=== PATIENT | male | born 1960 | race Caucasian/White ===

== ENCOUNTER → 2021-05-10 | Outpatient (CLI) | payer MEDICARE | LOC: EXRD 15:02 | DX: R06.02 Shortness of breath (principal); U09.9 Post COVID-19 condition, unspecified | CPT/HCPCS: 71046 ==

== ENCOUNTER → 2021-07-29 | Outpatient (CLI) | payer MEDICARE | LOC: HEART 5 08:53 | DX: R06.00 Dyspnea, unspecified (principal); R06.02 Shortness of breath | CPT/HCPCS: 94010 ==

== ENCOUNTER → 2021-08-12 | Outpatient (CLI) | payer MEDICARE | LOC: KOH-I 11:08 | DX: R10.13 Epigastric pain (principal); R06.02 Shortness of breath; R59.0 Localized enlarged lymph nodes | CPT/HCPCS: 71250 ==

== ENCOUNTER → 2021-08-17 | Outpatient (CLI) | payer MEDICARE | LOC: HEART 5 13:24 | DX: R06.00 Dyspnea, unspecified (principal); R06.02 Shortness of breath; U09.9 Post COVID-19 condition, unspecified | CPT/HCPCS: 94010 ==

== ENCOUNTER → 2021-09-08 | Outpatient (CLI) | payer MEDICARE | LOC: CT 09-01 14:00 | DX: N28.89 Other specified disorders of kidney and ureter (principal) | CPT/HCPCS: 74170; Q9967 ==

== ENCOUNTER → 2021-11-01 | Outpatient (CLI) | payer MEDICARE | LOC: HEART 5 15:20 | DX: R60.0 Localized edema (principal) | CPT/HCPCS: 93306 ==